=== PATIENT | male | born 1990 | race Caucasian/White ===

== ENCOUNTER 2025-01-04 15:00 | Emergency (ER) | payer BC, SELFPAY ==
[2025-01-04 15:08] VITALS: BP 118/73; PULSE 77; RESP 20; TEMP 36.5; O2SAT 96; BMI 22.1
--- NOTE | 2025-01-04 15:37 | XR_ITS ---
Examination: Ribs, right, with PA chest, 5 views Technique: Chest PA, RIBS AP, RPO, LPO, AP coned lower ribs 5 views Exam date and time: January 04, 2025, 1549 hrs. Indications: Injury to the right chest 3 days ago with right rib pain Findings: Normal heart size. No pneumothorax No acute rib fractures depicted Impression: No pneumothorax pulmonary contusion or hemothorax No acute rib fractures depicted
[2025-01-04] MEDS: IBUPROFEN TAB 400 MG TABLET 800 MG PO (15:46)
[2025-01-04] MEDS: ACETAMINOPHEN 500 MG TABLET 1000 MG PO (15:46)
--- NOTE | 2025-01-04 15:46 | EDNOTE_ITS ---
ED General RME/HPI General Chief complaint: General Adult/Misc Complain Stated complaint: RIGHT RIB PAIN Time Seen by Provider: 01/04/25 15:08 Arrival date/time: 01/04/25 15:00 This is a 34-year-old male that comes into the emergency room with complaints of right sided rib pain that radiates to his back. Patient states that he was wrestling with another male and that other person had their shoulder up against their rib. Patient states that he heard something pop. Patient states he had rib fracture on the right side in the past. Patient states it hurts to take a deep breath. Related Data Home Medications ?Medication ?Instructions ?Recorded ?Confirmed carvedilol 6.25 mg tablet 6.25 mg PO QDAY 01/20/21 Previous Rx's ?Medication ?Instructions ?Recorded tramadol 50 mg tablet 50 mg PO Q6H PRN pain #10 ta bs 02/23/21 cyclobenzaprine 10 mg tablet 10 mg PO BID #20 tabs 12/24 ibuprofen 800 mg tablet 800 mg PO Q6H PRN pain #20 t abs 01/04/25 Allergies Allergy/AdvReac Type Severity Reaction Status Date / Time No Known Allergies Allergy Verified 01/04/25 15:02 Course Orders Category Date Time Status XR ribs RT min 3V w CXR1V Stat Exams 01/04/25 15:37 Completed Acetaminophen Tab [Tylenol ES Tab] Med 01/04/25 15:37 Discontinued 1,000 mg PO X1 ONE Ibuprofen Tab [Motrin Tab] Med 01/04/25 15:37 Discontinued 800 mg PO X1 ONE Vital Signs Vital signs: Vital Signs Temperature 97.7 F 01/04/25 15:08 Pulse Rate 77 01/04/25 15:08 Respiratory Rate 20 01/04/25 15:08 Blood Pressure 118/73 01/04/25 15:08 Pulse Oximetry (%) 96 01/04/25 15:08 Oxygen Delivery Method Room Air 01/04/25 15:08 Discharge Plan Plan Patient Disposition: HOME (Self Care) Patient condition on transfer: Stable Prescriptions/Referrals Prescriptions/Med Rec: New cyclobenzaprine 10 mg tablet 10 mg PO BID Qty: 20 0RF ibuprofen 800 mg tablet 800 mg PO Q6H PRN (Reason: pain) Qty: 20 0RF No Action carvedilol 6.25 mg tablet 6.25 mg PO QDAY Rx Instructions: must administer with a meal/food tramadol 50 mg tablet 50 mg PO Q6H MDD 4 PRN (Reason: pain) Qty: 10 0RF Referrals: No Primary/Family,Physician [Primary Care Provider] - In 1 week Problem List Clinical Impression: Contusion of rib Patient/Caregiver Discharge Instructions Discharge Activity: activity as tolerated Education Materials: Bone Contusion Additional Instructions: Follow up with primary provider in 1-2 days. Come back to ED if symptoms change or worsen Print Language: Wolof Stand Alone Forms: Estefanía Award Info., Patient Portal Info Letter PA/YURI Supervising Physician PA/[employer] Supervising Physician: erma NATH Narrative MDM hospital course: rib/chst x ray: Findings: Normal heart size. No pneumothorax No acute rib fractures depicted Impression: No pneumothorax pulmonary contusion or hemothorax No acute rib fractures depicted Patient given tylenol and ibuprofen for pain. Patient does feel better. Will send patient home with ibuprofen 800 mg and Flexeril muscle relaxer. I told patient this is likely a muscle strain. However if symptoms change or worsen to come back to the emergency room. Patient verbalizes understanding and feels comfortable with plan of care. Medication Administration(s) Medication Administration History Discontinued Medications Acetaminophen (Acetaminophen 500 Mg Tablet) 1,000 mg PO X1 ONE Stop: 01/04/25 15:38 Last Admin: 01/04/25 15:46 Dose: 1,000 mg Documented By: ANI Ibuprofen (Ibuprofen Tab 400 Mg Tablet) 800 mg PO X1 ONE Stop: 01/04/25 15:38 Last Admin: 01/04/25 15:46 Dose: 800 mg Documented By: ANI
[2025-01-04 17:05] VITALS: BP 128/70; PULSE 78; RESP 18; TEMP 36.8; O2SAT 100
== END 2025-01-04 17:06 | disposition home or self-care (01) ==
PROVIDERS: Emergency Provider Licensed Practical Nurse
DX: S20.219A Contusion of unspecified front wall of thorax, initial encounter (principal); Y93.72 Activity, wrestling
CPT/HCPCS: 71101; 99283; A9270